=== PATIENT | male | born 1940 | race Caucasian/White ===

== ENCOUNTER 2017-05-26 09:57 | Emergency (ER) | payer OTHER ==
[~2017-05-26] VITALS: Ht 175.3 cm; Wt 59.0 kg
[2017-05-26 10:58] VITALS: BP 104/62
[2017-05-26 11:12] LABS: APPEARANCE,URINE SLIGHTLY CLOUDY; KETONES,URINE NEGATIVE (NEGATIVE); LEUKOCYTE ESTERASE ,URINE 2+ (NEGATIVE); NITRITE,URINE NEGATIVE (NEGATIVE); PH,URINE 5 (4.5-8.0); PROTEIN,URINE 4+ (NEGATIVE); UROBILINOGEN,URINE NORMAL MG/DL (0.0-1.0)
[2017-05-26 11:21] LABS: BACTERIA,URINE FEW /HPF; RBC,URINE TNTC /HPF (0 - 0); SQUAMOUS EPITHELIAL CELL,UR OCCASIONAL /LPF (NONE/OCC)
[2017-05-26] MEDS ORDERED: NITROFURANTOIN100 M2 ORAL (11:39)
[2017-05-26 11:49] VITALS: BP 104/62
--- NOTE | 2017-05-26 13:57 | Emergency Room Report ---
History of Present Illness General Chief Complaint: Male Urogenital Problems Source: Patient Present Illness HPI 76YOM [employer] patient with urinary incontinence, frequency for 3 days No fever/chills, abd pain, nausea/vomiting No rectal pain Allergies: Coded Allergies: No Known Allergies (Unverified , 05/26/17) Patient History Past Medical History: none Past Surgical History: none Pertinent Family History: none Social History: Denies: alcohol use, drug use, smoking Immunizations: UTD Reviewed Nursing Documentation: PMH: Agreed, PSxH: Agreed Nursing Documentation-PMH Past Medical History: No History, Except For Review of Systems All Other Systems: negative except mentioned in HPI Physical Exam Vital Signs Date Time Temp Pulse Resp B/P Pulse Ox O2 Delivery O2 Flow Rate FiO2 05/26/17 10:01 98.2 95 16 104/62 96 Room Air Sp02 EP Interpretation: reviewed, normal General Appearance: normal inspection, well appearing, no apparent distress, alert Head: atraumatic ENT: normal ENT inspection, hearing grossly normal, normal voice Neck: normal inspection, full range of motion, supple, no bony tend Respiratory: normal inspection, lungs clear, normal breath sounds, no respiratory distress, no retraction, no wheezing Cardiovascular #1: regular rate, rhythm, no edema Gastrointestinal: normal inspection, normal bowel sounds, non tender, soft, no guarding, no hernia Genitourinary: no CVA tenderness Musculoskeletal: normal inspection, back normal, normal range of motion, Juan Ramon' s Sign negative Neurologic: normal inspection, alert, oriented x3, responsive, case manager III-XII nml as tested, speech normal Psychiatric: normal inspection, judgement/insight normal, mood/affect normal Skin: normal inspection, normal color, no rash Lymphatic: normal inspection Medical Decision Making Diagnostic Impression: Primary Impression: UTI (urinary tract infection) Qualified Codes: N30.01 - Acute cystitis with hematuria ER Course Rx Macrobid PMD followup Last Vital Signs Date Time Temp Pulse Resp B/P Pulse Ox O2 Delivery O2 Flow Rate FiO2 05/26/17 11:49 98.2 95 16 104/62 96 Room Air Status: improved Disposition: HOME, SELF-CARE Condition: Improved Scripts Nitrofurantoin Monohyd/M-Cryst* (MACROBID 100 MG*) 100 Mg Capsule 100 MG ORAL EVERY 12 HOURS for 7 Days, #14 CAP Prov: GUDELIA MARTINES M.D. 05/26/17 Patient Instructions: Urinary Tract Infection GUDELIA MARTINES M.D. May 26, 2017 13:57
== END 2017-05-26 11:50 | disposition home or self-care (01) ==
LOC: EMR 11:17
DX: N39.0 Urinary tract infection, site not specified (principal)
CPT/HCPCS: 81003; 99283

== ENCOUNTER 2017-06-02 07:57 | Emergency (ER) | payer OTHER ==
[~2017-06-02] VITALS: Ht 175.3 cm; Wt 59.0 kg
[~2017-06-02 07:57] MED LIST: NITROFURANTOIN100 M2 ORAL
[2017-06-02] MEDS ORDERED: PROSCAR5 MG ORAL (08:08)
[2017-06-02 08:22] LABS: APPEARANCE,URINE CLEAR; KETONES,URINE NEGATIVE (NEGATIVE); LEUKOCYTE ESTERASE ,URINE 2+ (NEGATIVE); NITRITE,URINE NEGATIVE (NEGATIVE); PH,URINE 5 (4.5-8.0); PROTEIN,URINE 2+ (NEGATIVE); UROBILINOGEN,URINE NORMAL MG/DL (0.0-1.0)
[2017-06-02 08:31] LABS: BACTERIA,URINE FEW /HPF; SQUAMOUS EPITHELIAL CELL,UR OCCASIONAL /LPF (NONE/OCC)
--- NOTE | 2017-06-02 09:03 | Emergency Room Report ---
History of Present Illness General Chief Complaint: Male Urogenital Problems Source: Patient Present Illness HPI 76YOM [employer] patient with continued yet better dysuria, urinary incontinence for 1 week Was seen by me last week for similar complaint Completed Macrobid with improvement, resolution of "dark urine color." Went to [facility] ED 3 days ago, "they didnt do anything." Denies fever/chills, abd pain, nausea/vomiting, flank pain History of enlarged prostate, on meds. has urologist Denies rectal pain Denies smoking history, cancer history Allergies: Coded Allergies: No Known Allergies (Unverified , 05/26/17) Patient History Past Medical History: other - BPH Past Surgical History: none Pertinent Family History: none Social History: Denies: alcohol use, drug use, smoking Immunizations: UTD Reviewed Nursing Documentation: PMH: Agreed, PSxH: Agreed Review of Systems All Other Systems: negative except mentioned in HPI Physical Exam Vital Signs Date Time Temp Pulse Resp B/P Pulse Ox O2 Delivery O2 Flow Rate FiO2 06/02/17 08:03 97.7 66 18 92/60 95 Room Air Sp02 EP Interpretation: reviewed, normal General Appearance: normal inspection, well appearing, no apparent distress, alert, GCS 15, non-toxic Head: normocephalic, atraumatic Eyes: bilateral eye EOMI, bilateral eye PERRL ENT: normal ENT inspection, hearing grossly normal, normal voice Neck: normal inspection, full range of motion, supple, no bony tend Respiratory: normal inspection, lungs clear, normal breath sounds, no respiratory distress, no retraction, no wheezing Cardiovascular #1: regular rate, rhythm, no edema Gastrointestinal: normal inspection, normal bowel sounds, non tender, soft, no guarding, no hernia Genitourinary: no CVA tenderness Musculoskeletal: normal inspection, back normal, normal range of motion, Juan Ramon' s Sign negative Neurologic: normal inspection, alert, oriented x3, responsive, 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 Afebrile. - No focal abd ttp or CVAT - Labs: UA same as last week - No leuks. H&H stable. - Ultrasound with bladder wall thickening. No pyelo, cysts per tech report - Will try trial of Cipro BID with PMD and Urology followup ?why urine cx not done from last week by lab yet so unable to check sensitivity of UTI Last Vital Signs Date Time Temp Pulse Resp B/P Pulse Ox O2 Delivery O2 Flow Rate FiO2 06/02/17 08:03 97.7 66 18 92/60 95 Room Air Status: improved Disposition: HOME, SELF-CARE Scripts Ciprofloxacin Hcl* (CIPROFLOXACIN HCL*) 500 Mg Tablet 500 MG ORAL Q12H for 7 Days, #14 TAB 0 Refills Prov: GUDELIA MARTINES M.D. 06/02/17 Referrals: NOEMY LIGHT MD (PCP) GUDELIA MARTINES M.D. Jun 02, 2017 09:03
[2017-06-02 09:15] LABS: BASOPHILS % (AUTO) 0.9 % (0.0-2.0); EOSINOPHILS % (AUTO) 2.2 % (0.0-3.0); LYMPHOCYTES % (AUTO) 25.9 % (20.0-45.0); MEAN CORPUSCULAR HEMOGLOBIN 30.7 PG (27.0-31.0); MEAN CORPUSCULAR HGB CONC 33.3 G/DL (32.0-36.0); MEAN CORPUSCULAR VOLUME 92 FL (80-99); MEAN PLATELET VOLUME 7.9 FL (6.5-10.1); MONOCYTES % (AUTO) 10.1 % (1.0-10.0); PLATELET COUNT 229 K/UL (150-450); RED BLOOD COUNT 4.56 M/UL (4.70-6.10); RED CELL DISTRIBUTION WIDTH 11.7 % (11.6-14.8); WHITE BLOOD COUNT 7.7 K/UL (4.8-10.8)
[2017-06-02 09:30] LABS: ALANINE AMINOTRANSFERASE 22 U/L (3-41); ALBUMIN/GLOBULIN RATIO 1.3 (1.0-2.7); ANION GAP 9 (5-15); ASPARTATE AMINO TRANSFERASE 22 U/L (5-40); CALCIUM 9.2 mg/dL (8.6-10.2); CARBON DIOXIDE 29 mEQ/L (20-30); CHLORIDE 102 mEQ/L (98-107); HEMOLYSIS 2; LIPASE 48 U/L (< 60); POTASSIUM 3.9 mEQ/L (3.4-4.9); SODIUM 140 mEQ/L (135-145); TOTAL PROTEIN 6.4 g/dL (6.6-8.7)
--- NOTE | 2017-06-02 10:20 | Diagnostic Imaging Report ---
Indication: Hematuria, urinary tract infection Technique: Renal ultrasound Findings: Kidneys: The kidneys are normal in size. In the right kidney, there is a septated mass filled with fluid. Good cortez are noted and there is good through transmission. It measures 2 cm in size. IVC: The visualized portion of the inferior vena cava appears normal. Bladder: 2 echogenic foci are noted within the bladder with shadowing. The larger of these measures approximately 3.1 cm. There is thickening of the right side of the bladder wall versus mass measuring 1.6 cm in thickness. The bladder is incompletely filled. The prostate is enlarged. Calcifications are noted in the prostate. Impression: Bladder calculi. The largest of these measures approximately 3.1 cm. Focal thickening of the right side of the bladder wall versus mass. Further evaluation with cystoscopy is suggested to exclude malignancy. Septated right renal cyst. Prostatomegaly..
[2017-06-02] MEDS ORDERED: CIPROFLOXACIN500 M2 ORAL (10:29)
[2017-06-02 10:59] VITALS: BP 130/70
== END 2017-06-02 11:01 | disposition home or self-care (01) ==
LOC: EMR 08:25
DX: N30.01 Acute cystitis with hematuria (principal); N40.0 Benign prostatic hyperplasia without lower urinary tract symptoms
CPT/HCPCS: 36415; 76775; 80053; 81003; 83690; 85025; 99283